=== PATIENT | male | born 1960 | race Caucasian/White ===

== ENCOUNTER 2022-01-16 17:37 | Inpatient (IN) ==
[2022-01-16] MEDS ORDERED: SODIUM CHLORIDE 0.9% 1000ML 1,000 ML IV STA (18:14)
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
[2022-01-16 18:26] LABS: Hematocrit (blood only) 35.9 % (42-52); Hemoglobin 12.1 g/dL (14.0-18.0); Mean Corpuscular Hemoglobin 34.8 pg (25-34); Mean Corpuscular Hgb Conc 33.7 g/dL (32-36); Mean Corpuscular Volume 103.2 fL (80-100); Mean Platelet Volume 9.6 fL (7.4-10.4); Platelet Count 176 K/uL (130-400); RDW Coefficient of Variation 16.3 % (11.5-14.5); RDW Standard Deviation 61.6 fL (36.4-46.3); Red Blood Count 3.48 M/uL (4.7-6.1); White Blood Count 17.43 K/uL (4.8-10.8)
[2022-01-16 18:41] LABS: Basophils # (auto) 0.02 K/uL (0-0.2); Basophils % (auto) 0.1 %; Eosinophils # (auto) 0.02 K/uL (0-0.5); Eosinophils % (auto) 0.1 %; Immature Granulocytes # (auto) 0.07 K/uL (0.00-0.02); Immature Granulocytes % (auto) 0.4 %; Lymphocytes # (auto) 1.05 K/uL (1.2-3.4); Monocytes # (auto) 1.98 K/uL (0.11-0.59); Monocytes % (auto) 11.4 %; Neutrophils # (auto) 14.29 K/uL (1.4-6.5); Ovalocytes 1+; Tear Drop Cells 1+
[2022-01-16 18:56] LABS: Albumin Globulin Ratio 1.3 (0.9-2); Albumin Level 4.1 gm/dl (3.4-5.0); BUN Creatinine Ratio 16.4 (10-20); Bilirubin,Total 0.7 mg/dl (0.2-1.0); Calcium 9.7 mg/dl (8.5-10.1); Est GFR (African American) 128.5 ml/min; Est GFR (Non-African American) 110.9 ml/min; Globulin 3.1 gm/dl (2.5-4.0); Potassium 2.6 mmol/L (3.5-5.1); Total Protein 7.2 gm/dl (6.0-8.3)
[2022-01-16] MEDS ORDERED: GELATIN SPONGE 12-7MM ONE (19:06)
[2022-01-16] MEDS ORDERED: cefTRIAXone SODIUM 2,000 MG/70 ML BAG IV STA (19:10)
[2022-01-16] MEDS ORDERED: POTASSIUM CHLORIDE / WTR 10 MEQ/100 ML PLCT IV ONE (19:12)
[2022-01-16] MEDS ORDERED: POTASSIUM CHLORIDE 20 MEQ/15 ML UDC PO STA (19:12)
[2022-01-16 20:47] LABS: Appearance Urine Clear (Clear); Bacteria Urine Automated Negative (Negative); Bilirubin Urine Negative (Negative); Blood Urine 2+ (Negative); Color Urine Yellow; Glucose Urine UA Negative (Negative); Ketones Urine Trace (Negative); Leukocyte Esterase Urine Negative (Negative); Nitrite Urine Negative (Negative); Protein Urine Negative (Negative); RBC Urine Automated >30 /hpf (0-4); Specific Gravity Urine 1.018 (1.000-1.030); Urobilinogen Urine Negative (Negative)
[2022-01-16] MEDS ORDERED: OPTIRAY 320 100ml IV ONE (21:22)
[2022-01-16] MEDS: SOD PHOSPHATE/SOD BIPHOSPHATE ENEMA 132 ML BTL PR STA ×2 (21:59→22:16)
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
[2022-01-16] MEDS ORDERED: dexAMETHasone**PF** 10 MG/ML VIAL IV ONE (22:50)
[2022-01-16] MEDS ORDERED: MoRPHine SULFATE 2 MG/ML CARP IV STA (23:12)
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
[2022-01-16] MEDS ORDERED: METOPROLOL TARTRATE 1 MG/ML VIAL IV STA (23:22)
[2022-01-16] MEDS ORDERED: LACTATED RINGER'S 1,000 ML IV ONE (23:31)
[2022-01-16] MEDS: METOPROLOL TARTRATE 1 MG/ML VIAL IV ONE ×2 (23:34→23:46)
[2022-01-16 23:50] LABS: Magnesium 1.6 mg/dl (1.7-2.4)
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
[2022-01-17] MEDS ORDERED: bisacodyL 10 MG SUPP PR STA (00:23)
[2022-01-17] MEDS ORDERED: MAGNESIUM SULFATE / D5W 1 GM/100 ML BAG IV ONE (00:24)
[2022-01-17] MEDS ORDERED: METOPROLOL TARTRATE 1 MG/ML VIAL IV STA (01:31)
[2022-01-17] MEDS ORDERED: POLYETHYLENE (MIRALAX) 17 GM PACK PO PRN (01:33)
[2022-01-17] MEDS ORDERED: CEFEPIME 2,000 MG/20 ML VIAL IV STA (01:45)
[2022-01-17] MEDS ORDERED: clonazePAM 0.5 MG TAB PO PRN (01:58)
[2022-01-17] MEDS ORDERED: OLANZapine 10 MG/2.1 ML SDV IM PRN (01:58)
[2022-01-17] MEDS ORDERED: PROMETHAZINE HCL 6.25 MG in SODIUM CHLORIDE 0.9% 50 ML IV PRN (01:58)
[2022-01-17] MEDS ORDERED: oxyCODONE HCL IR 5 MG TAB (IMMEDIATE RELEASE) PO PRN (01:58)
[2022-01-17] MEDS ORDERED: KETOROLAC TROMETHAMINE 15 MG/ML VIAL IV PRN (01:58)
[2022-01-17] MEDS ORDERED: ACETAMINOPHEN 325 MG TAB PO PRN (02:32)
[2022-01-17] MEDS ORDERED: HEPARIN 100 UNIT/ML 5ML FLUSH FLUSH PRN (02:48)
[2022-01-17] MEDS: POTASSIUM CHLORIDE / WTR 10 MEQ/100 ML PLCT IV SCH ×4 (03:13→06:34)
[2022-01-17] MEDS ORDERED: METOPROLOL SUCC 50MG EXT REL TAB PO SCH ×2 (05:15→09:00)
[2022-01-17] MEDS ORDERED: LACTATED RINGER'S 1,000 ML IV ONE (05:16)
[2022-01-17] MEDS: dexAMETHasone 4 MG in SYRINGE 0 ML IV SCH ×2 (05:54→13:13)
[2022-01-17 07:36] LABS: Hematocrit (blood only) 31.4 % (42-52); Hemoglobin 10.5 g/dL (14.0-18.0); Immature Granulocytes # (auto) 0.07 K/uL (0.00-0.02); Immature Granulocytes % (auto) 0.4 %; Lymphocytes # (auto) 0.39 K/uL (1.2-3.4); Lymphocytes % (auto) 2.5 %; Mean Corpuscular Hemoglobin 34.4 pg (25-34); Mean Corpuscular Hgb Conc 33.4 g/dL (32-36); Mean Platelet Volume 9.7 fL (7.4-10.4); Monocytes % (auto) 0.6 %; Neutrophils # (auto) 15.13 K/uL (1.4-6.5); Neutrophils % (auto) 96.5 %; Platelet Count 152 K/uL (130-400); RDW Coefficient of Variation 16.2 % (11.5-14.5); Red Blood Count 3.05 M/uL (4.7-6.1); White Blood Count 15.69 K/uL (4.8-10.8)
--- NOTE | 2022-01-17 07:36 | CT Scan Report ---
CT head/brain wo/w con CLINICAL HISTORY: confusion, head tumor TECHNIQUE: Contiguous axial CT images of the head from the base of the skull to the vertex before and after intravenous administration of IV contrast and submitted for interpretation. Automated dose low ering techniques and/or adjustment according to patient size were utilized for this examination. COMPARISON: Comparison is made to CT head 09/09/2021 FINDINGS: Patient is again noted to be status post right frontoparietal craniectomy. Superficial soft tissue ma ss is significantly enlarged from prior exam measuring up to 2.7 cm in diameter, compared to 1.4 cm i n the prior exam. There is extensive vasogenic edema in the posterior cerebrum, increased from prior exam. Posterior midline cerebral calcifications are seen, unchanged. Calvarial erosions are again seen and there is opacification of right mastoid air cells. IMPRESSION: Interval worsening of vasogenic edema patient with known malignancy. Increase in right te mporal subcutaneous mass compared to prior exam. Redemonstration of craniotomy changes and calcifica tions in the posterior midline which may represent neoplastic changes. ACT 112: Negative or not required by law. Electronically signed by: Edmundo Bolanos M.D. 01/17/2022 7:35 AM
--- NOTE | 2022-01-17 07:36 | XRay Report ---
SINGLE VIEW CHEST CLINICAL HISTORY: Change in mental status. FINDINGS: 2 AP, portable, upright chest radiographs are compared to study dated 01/12/2022. Correlation is made with chest CT dated 09/25/2013. The examination is degraded by portable technique and apical lordotic positioning. A right internal jugular central venous infusion port is unchanged in position. The cardiomediastinal silhouette is unremarkable noting atherosclerotic calcification of the thoraci c aorta. A pleural-based mass lesion in the right upper lobe is again noted with adjacent rib fractur es. No airspace consolidation typical for pneumonia or large pleural effusion is identified. No pneum othorax is seen. The skeletal structures are osteopenic. Surgical clips are noted in the right axill a as well as over the lower face. IMPRESSION: 1. There is no airspace consolidation typical for pneumonia or large pleural effusion. 2. A pleural-based lesion in the right upper lobe with adjacent rib fractures is similar to previous. Correlate with the patient's oncological history. ACT 112: Negative or not required by law. Electronically signed by: Irving Menchaca M.D. 01/17/2022 7:35 AM
[2022-01-17 07:54] LABS: BUN Creatinine Ratio 16.3 (10-20); Calcium 8.6 mg/dl (8.5-10.1); Creatinine Clr Calc Pharmacy 162.2 ml/min; Est GFR (African American) 142.2 ml/min; Est GFR (Non-African American) 122.7 ml/min; Magnesium 1.6 mg/dl (1.7-2.4); Potassium 3.4 mmol/L (3.5-5.1)
--- NOTE | 2022-01-17 07:54 | CT Scan Report ---
CT abd pelvis IV con only CLINICAL HISTORY: hematuria TECHNIQUE: Helical axial images of the abdomen and pelvis were obtained and displayed. Automated dose lowering techniques and/or adjustment according to patient size were utilized for this exam. This e xam was performed with intravenous contrast. CT DOSE: 2750.61 mGy.cm COMPARISON: None available at the time of this dictation. FINDINGS: Lower chest: No acute abnormality Liver: Unremarkable. No focal lesions are seen. Gallbladder and biliary tree: No calcified gallstones. Normal caliber wall. No intra- or extrahepatic biliary ductal dilation. Pancreas: Unremarkable, no focal lesions. Spleen: Unremarkable. Adrenals: Unremarkable. Kidneys and ureters: Subcentimeter hypodensities are too small to characterize. Bladder: Tavarez catheter is seen. Prominence of the bladder wall is noted. Reproductive organs: Unremarkable. Bowel: Rectal impaction is seen. There is a small hiatal hernia. Lymph nodes Retroperitoneal: Unremarkable. Mesenteric: Unremarkable. Pelvic: Unremarkable. Peritoneum: Normal. Vessels: An aortobiiliac stent is noted. Spanning a 2.5 cm right common iliac artery aneurysm. There is stenosis in the proximal common femoral artery and occlusion and dilation of the superficial femor al artery. Abdominal wall: Unremarkable. Bones: Degenerative changes in the visualized spine. IMPRESSION: 1. No acute abnormality and in particular no evidence of urothelial lesion. 2. Fecal impaction. 3. Status post aortobiiliac stent with stenosis of the right proximal common femoral artery and occl usion dilation of the superficial femoral artery on the right. ACT 112: Negative or not required by law. Electronically signed by: Edmundo Bolanos M.D. 01/17/2022 7:52 AM
[2022-01-17] MEDS ORDERED: CEFEPIME 2,000 MG in SYRINGE 0 ML IV SCH (08:00)
[2022-01-17] MEDS ORDERED: 25 mcg patch: fentaNYL PATCH REMOVE & WASTE SCH (08:59)
[2022-01-17] MEDS ORDERED: fentaNYL 12 MCG/HR TDSY TD SCH (09:00)
[2022-01-17] MEDS ORDERED: DULoxetine HCL 20 MG CAP PO SCH (09:00)
[2022-01-17] MEDS ORDERED: ASPIRIN 81 MG ECTAB PO SCH (09:00)
[2022-01-17] MEDS ORDERED: ATORVASTATIN 20 MG TAB PO SCH (09:00)
[2022-01-17] MEDS: [UNRECOGNIZED DRUG - REMARK] SCH (09:00)
[2022-01-17] MEDS ORDERED: DOCUSATE SODIUM/SENNA 50/8.6MG TAB PO SCH (09:00)
[2022-01-17] MEDS ORDERED: fentaNYL 25 MCG/HR TDSY TD SCH (09:00)
[2022-01-17] MEDS ORDERED: PANTOprazole 40 MG in SYRINGE 0 ML IV SCH (11:00)
[2022-01-17 13:32] LABS: Hematocrit (blood only) 29.8 % (42-52); Hemoglobin 10.1 g/dL (14.0-18.0); Mean Corpuscular Hemoglobin 34.7 pg (25-34); Mean Corpuscular Hgb Conc 33.9 g/dL (32-36); Mean Corpuscular Volume 102.4 fL (80-100); Mean Platelet Volume 9.9 fL (7.4-10.4); Platelet Count 146 K/uL (130-400); RDW Standard Deviation 60.8 fL (36.4-46.3); Red Blood Count 2.91 M/uL (4.7-6.1); White Blood Count 13.71 K/uL (4.8-10.8)
[2022-01-17 13:41] LABS: BUN Creatinine Ratio 18.6 (10-20); Calcium 8.7 mg/dl (8.5-10.1); Creatinine Clr Calc Pharmacy 162.2 ml/min; Est GFR (African American) 142.2 ml/min; Est GFR (Non-African American) 122.7 ml/min; Potassium 2.9 mmol/L (3.5-5.1)
[2022-01-17] MEDS ORDERED: ONDANSETRON 4 MG OD TAB SL PRN (15:03)
[2022-01-17] MEDS ORDERED: MoRPHine SULFATE 2 MG/ML CARP IV PRN (15:03)
--- NOTE | 2022-01-17 15:05 | Hospitalist Progress Note ---
Date of Service January 17, 2022 Assessment & Plan Admission and Anticipated Discharge Date Admission Date: January 17, 2022 Subjective Patient admitted today for hematuria but noted to have progressive confusion for past 1 week. Patient was seen and examined. Chart reviewed. Later I was notified by nursing staff that he is having episodes of dark emesis and one episode of 30 sec unresponsiveness. I called Mrs Shetty and we discussed her 's poor prognosis and poor clinical status currently. She is considering comfort measures only but would like to discuss with her children. I later received notification from Dr Alex that after discussing with Mrs Shetty, family has requested patient be transitioned to comfort measures only. Appreciate Palliative care input. Will transition to comfort measures, will notify CM, and move patient to med/surg. Full note by oncoming provider tomorrow. Results & Data Results & Data ([facility]) Vital Signs (Past 12 Hours) Vital Signs Temp Pulse Pulse Pulse Resp BP Pulse Ox 01/17/22 11:08 37 C 113 H 16 129/84 98 01/17/22 08:00 106 H 01/17/22 07:33 36.5 C 108 H 18 119/77 97 01/17/22 05:52 121 H 135/92
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
[2022-01-17] MEDS ORDERED: LORazepam 2 MG/1 ML VIAL ONE (17:47)
[2022-01-17] MEDS: LORazepam 2 MG/1 ML VIAL IV SCH ×2 (17:55→21:24)
[2022-01-17] MEDS: CHECK FENTANYL SCH (17:56)
[2022-01-17] MEDS ORDERED: HEPARIN 100 UNIT/ML 5ML FLUSH ONE (20:03)
[2022-01-17] MEDS: HEPARIN 100 UNIT/ML 5ML FLUSH FLUSH PRN (20:05)
[2022-01-18] MEDS: LORazepam 2 MG/1 ML VIAL IV SCH ×3 (00:15→08:30)
[2022-01-18] MEDS: CHECK FENTANYL SCH ×2 (00:18→08:01)
[2022-01-18] MEDS: MoRPHine SULFATE 2 MG/ML CARP IV PRN ×11 (05:45→23:07)
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
[2022-01-18] MEDS: HEPARIN 100 UNIT/ML 5ML FLUSH FLUSH PRN (12:26)
[2022-01-18] MEDS ORDERED: LORazepam 2 MG/1 ML VIAL IV SCH (12:30)
[2022-01-18] MEDS: ONDANSETRON INJ 2 MG/ML 2 ML VIAL IV PRN (13:19)
--- NOTE | 2022-01-18 14:37 | Palliative Care Progress Note ---
Date of Service January 18, 2022 Assessment & Plan (1) Pain: Plan: Discussed with his , Aileen. Difficult to titrate pain medications rapidly with fentanyl patch. Will discontinue and start morphine infusion. Start low dose initially with no titration while fentanyl clears. Morphine doses available prn. Discussed with RN and pharmacy. (2) Palliative care encounter: Plan: Talked with Mrs. Shetty at bedside. She tells me that she is having some second thoughts about shifting the focus of his care. We reviewed the head CT and talked about her observations that he had been declining at home, despite treatment. She feels more comfortable with that decision. She has a lot of family support. They have been looking at pictures together and sharing memories. She tells me that he told her last night to make sure he gets to his parents, who are . Support provided. Palliative Care will follow. (3) At risk for seizures: (4) Squamous cell skin cancer: Admission and Anticipated Discharge Date Admission Date: January 17, 2022 Subjective Has been awake and talking with family. They are taking turns at bedside. He has been complaining of pain in his head with morphine x 4 in last 24 hours. He does not feel that fentanyl is helping. Review of Systems Review of Systems: [place] Symptom Assessment Scale Currently asleep, difficult to arouse Pain by observation 0/3 Dyspnea by observation 0/3 Palliative Performance Score 30% Physical Exam Constitutional: somnolent, no apparent distress Respiratory: normal respiratory effort; no labored breathing Cardiovascular: irregular Gastrointestinal (Abdomen): nontender Musculoskeletal: Extremities: + muscle atrophy Skin: warm and dry PG Care Time/CCT Total # of Minutes Spent Total Time Spent: 45 Total Time Spent with Patient: Total time spent is greater than 50% in coordination of care (as documented) at patient's floor/unit and/or counseling patient: symptom management, family education and support, coordination of care Coding Level of Care Code 74752 Subseq Hosp Care Lvl 3 Diagnoses Pain R52 Palliative care encounter Z51.5 At risk for seizures Z91.89 Squamous cell skin cancer C44.92
[2022-01-18] MEDS ORDERED: STAT IV Infusion **Titration per Protocol STA (14:43)
[2022-01-18] MEDS: LORazepam 0.5 MG TAB SL SCH ×3 (15:58→23:07)
[2022-01-18] MEDS: MoRPHine SULF/NSS 250 MG/250 ML BTL IV SCH (17:27)
[2022-01-18] MEDS: [UNRECOGNIZED DRUG - REMARK] SCH (17:29)
[2022-01-19] MEDS: MoRPHine SULFATE 2 MG/ML CARP IV PRN ×8 (00:14→23:20)
[2022-01-19] MEDS: LORazepam 2 MG/1 ML VIAL IV PRN ×2 (01:01→05:01)
[2022-01-19] MEDS: LORazepam 0.5 MG TAB SL SCH ×3 (03:39→12:20)
[2022-01-19] MEDS ORDERED: Nursing to Pharmacy Communication SCH (06:00)
[2022-01-19] MEDS: ONDANSETRON INJ 2 MG/ML 2 ML VIAL IV PRN ×2 (09:44→16:06)
[2022-01-19] MEDS ORDERED: OLANZapine ZYDIS 5 MG ORALLY DIS. TAB PO PRN (12:37)
--- NOTE | 2022-01-19 12:45 | Palliative Care Progress Note ---
Date of Service January 19, 2022 Assessment & Plan (1) Pain: Plan: Nearly 24 hours since fentanyl patch removed. He has had 20mg IV morphine in last 24 hours in prn dosing in addition to infusion. Will increase basal rate to 3mg/hr. Continue prn dosing rather than titration as fentanyl clears. (2) At risk for seizures: Plan: Continue routine lorazepam. (3) Agitation: Plan: Related to cerebral edema vs terminal delirium. This is distressing to He and his family. Increase lorazepam to 1mg every four hours routine dosing. Add prn zyprexa ODT for delirium. (4) Palliative care encounter: Plan: Mr. Shetty tells me that she talked with family and they are all in agreement that comfort focused approach is the best way to help He at this time. Family is visiting and have had some lucid moments with He. 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 Calling out to get going, to go somewhere. Denies pain when asked. Facial grimace and moan with repositioning. Review of Systems Review of Systems: Unobtainable due to cognitive status PPS 30% Physical Exam Constitutional: + ill appearing and + altered mental status ENMT: Mouth: + dry oral mucous membranes Respiratory: normal respiratory effort; no labored breathing Musculoskeletal: Extremities: + muscle atrophy Skin: warm and dry Neurologic: + confused PG Care Time/CCT Total # of Minutes Spent Total Time Spent: 38 Total Time Spent with Patient: Total time spent is greater than 50% in coordination of care (as documented) at patient's floor/unit and/or counseling patient: symptom management, family education and support Coding Level of Care Code 90793 Subseq Hosp Care Lvl 3 Diagnoses Pain R52 At risk for seizures Z91.89 Agitation R45.1 Palliative care encounter Z51.5 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
[2022-01-19] MEDS ORDERED: LORazepam 0.5 MG TAB SL STA (13:06)
--- NOTE | 2022-01-19 15:52 | Hospitalist Progress Note ---
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 Ferguson. No surgical intervention recommended. Palliative care consultation recommended.) CS, Cefepime Held initially as needed narcotics/neuropsychotropic meds for sedation confusion Palliative care consulted Re: Discuss goals of care with patient/- patient was made comfort care after discussion with palliative medicine , patient more confused and agitated, continue morphine, Ativan, Zyprexa for delirium prn Chronic conditions hx coronary disease status post stenting, PVD status post surgery, hypertension, BP normal hx HCV as per records chronic anemia, hemoglobin at baseline past tobacco abuse. DVT prophylaxis SCDs Re: Brain mets CODE STATUS : DNR/DNI -comfort care Patient's , Ms. Aileen Shetty - [phone]. Admission and Anticipated Discharge Date Admission Date: January 17, 2022 Subjective Patient seen in follow-up of encephalopathy, history of squamous cell carcinoma, with metastases, now comfort care Patient more confused and agitated today Palliative medicine consulted and following, appreciate their input Currently denies any pain, nausea or any significant discomfort Patient's and granddaughter at the bedside Review of Systems Review of Systems: All systems reviewed & are unremarkable except as noted in Subjective Physical Exam Physical Exam: Constitutional:G + Chronically ill appearing; no acu te distress ENMT: Alopecia, healed s urgical scars over scalp, oral mucou s membranes not dr y Respiratory: normal respiratory effort; no labore d breathing Cardiovascular:G Rate/Rhythm: regul ar rate and regula r rhythm Gastrointestinal ( Abdomen): soft, nontender Skin: pale Neurologic: + Laying in bed, somewhat confused today Results & Data Results & Data ([facility]) Medications Administered Current Inpatient Medications Heparin Sodium (Porcine) (Heparin 100 Unit/Ml 5ml Flush) 5 ml FLUSH PRN PRN PRN Reason: Flush Stop: 02/16/22 19:49 Last Admin: 01/18/22 12:26 Dose: 5 ml Documented by: Promethazine HCl 6.25 mg/ (Sodium Chloride) 50.25 mls @ 201 mls/hr IV Q6H PRN PRN Reason: Nausea And Vomiting Stop: 02/16/22 01:57 Last Infusion: 01/17/22 13:35 Dose: Infused Documented by: Morphine Sulfate (Morphine Sulf/Nss) 250 mg in 250 mls @ 3 mls/hr IV .[id number] [facility]; Protocol Stop: 02/01/22 14:44 Last Titration: 01/19/22 13:02 Dose: 3 mg/hr, 3 mls/hr Documented by: Lorazepam (Lorazepam 2 Mg/1 Ml Vial) 1 mg IV Q4H PRN; Protocol PRN Reason: Agitation Stop: 02/18/22 12:44 Lorazepam (Lorazepam 1 Mg Tab) 1 mg SL Q4 LES[facility] Stop: 02/18/22 15:59 Morphine Sulfate (Morphine Sulfate 2 Mg/Ml Carp) 2 mg IV Q1H PRN PRN Reason: Pain or Respiratory Distress Stop: 01/31/22 15:02 Last Admin: 01/19/22 14:48 Dose: 2 mg Documented by: Olanzapine (Olanzapine Zydis 5 Mg Orally Dis. Tab) 5 mg PO Q8H PRN PRN Reason: Agitation Stop: 02/18/22 12:44 Ondansetron HCl (Ondansetron Inj 2 Mg/Ml 2 Ml Vial) 4 mg IV Q4H PRN PRN Reason: Nausea &/or Vomiting Stop: 02/16/22 15:02 Last Admin: 01/19/22 09:44 Dose: 4 mg Documented by: Ondansetron HCl (Ondansetron 4 Mg Od Tab) 4 mg SL Q4H PRN PRN Reason: Nausea &/or Vomiting Stop: 02/16/22 15:02
[2022-01-19] MEDS: LORazepam 1 MG TAB SL SCH ×2 (16:01→21:30)
[2022-01-20] MEDS: LORazepam 1 MG TAB SL SCH ×6 (01:16→19:14)
[2022-01-20] MEDS: MoRPHine SULFATE 2 MG/ML CARP IV PRN ×6 (03:16→21:47)
--- NOTE | 2022-01-20 12:49 | Palliative Care Progress Note ---
Date of Service January 20, 2022 Assessment & Plan (1) Pain: Plan: Fentanyl mostly cleared at this point. He used 10mg IV morphine in bolus dosing last 24 hours. Will increase infusion to 3.5 mg/hr. Continue bolus dosing as needed. (2) Agitation: Plan: Improved with zyprexa and increased dose of lorazepam. (3) At risk for seizures: Plan: On routine lorazepam for seizure prophylaxis. (4) Palliative care encounter: Plan: Talked with Mrs. Shetty about what to expect with changes in respiration, decreased responsiveness. He is likely to within the next few days. She has told him that its ok to go when he is ready. He talks frequently about seeing relatives. Family has been very supportive and take turns at bedside. Admission and Anticipated Discharge Date Admission Date: January 17, 2022 Subjective More lethargic today. Does answer questions and calls out to his family at times. Complains of pain in his head when asked but quickly goes back to sleep. No facial grimace. No muscle tension. Having periods of apnea per his . Review of Systems Review of Systems: ESAS Pain 1/3 Dyspnea 0/3 Nausea 0/3 Fatigue 3/3 Drowsiness 2/3 PPS 30% Physical Exam Constitutional: + lethargic; no acute distress ENMT: Mouth: + dry oral mucous membranes Respiratory: normal respiratory effort; no labored breathing no audible secretions Cardiovascular: Extremities: no edema vascular skin changes, mottling noted on left knee Musculoskeletal: muscle atrophy, right AKA Results & Data ([facility]) Vital Signs (Past 12 Hours) Vital Signs Temp Pulse Resp BP Pulse Ox 01/20/22 07:16 98.4 F 131 H 16 121/81 96 PG Care Time/CCT Total # of Minutes Spent Total Time Spent with Patient: Total time spent is greater than 50% in coordination of care (as documented) at patient's floor/unit and/or counseling patient: Coding Level of Care Code 95282 Subseq Hosp Care Lvl 2 Diagnoses Pain R52 Agitation R45.1 At risk for seizures Z91.89 Palliative care encounter Z51.5
--- NOTE | 2022-01-20 14:28 | Hospitalist Progress Note ---
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 Ferguson. No surgical intervention recommended. Palliative care consultation recommended.) CS, Cefepime Held initially as needed narcotics/neuropsychotropic meds for sedation confusion Palliative care consulted Re: Discuss goals of care with patient/- patient was made comfort care after discussion with palliative medicine continue morphine, Ativan, Zyprexa for delirium prn Appreciate palliative medicine input Chronic conditions hx coronary disease status post stenting, PVD status post surgery, hypertension, BP normal hx HCV as per records chronic anemia, hemoglobin at baseline past tobacco abuse. DVT prophylaxis SCDs Re: Brain mets CODE STATUS : DNR/DNI -comfort care Patient's , Ms. Aileen Shetty - [phone]. Admission and Anticipated Discharge Date Admission Date: January 17, 2022 Subjective Patient seen in follow-up of encephalopathy, history of squamous cell carcinoma, with metastases, now comfort care Patient more lethargic today Palliative medicine consulted and following, appreciate their input Patient's , daughter and granddaughter at the bedside Review of Systems Review of Systems: All systems reviewed & are unremarkable except as noted in Subjective Physical Exam Physical Exam: Constitutional:G + Chronically ill appearing; no acu te distress ENMT: Alopecia, healed s urgical scars over scalp, oral mucou s membranes not dr y Respiratory: normal respiratory effort; no labore d breathing Cardiovascular:G Rate/Rhythm: regul ar rate and regula r rhythm Gastrointestinal ( Abdomen): soft, nontender Skin: pale Neurologic: + Laying in bed, more lethargic tod ay Results & Data Results & Data ([facility]) Vital Signs (Past 12 Hours) Vital Signs Temp Pulse Resp BP Pulse Ox 01/20/22 07:16 36.9 C 131 H 16 121/81 96 Medications Administered Current Inpatient Medications Heparin Sodium (Porcine) (Heparin 100 Unit/Ml 5ml Flush) 5 ml FLUSH PRN PRN PRN Reason: Flush Stop: 02/16/22 19:49 Last Admin: 01/18/22 12:26 Dose: 5 ml Documented by: Promethazine HCl 6.25 mg/ (Sodium Chloride) 50.25 mls @ 201 mls/hr IV Q6H PRN PRN Reason: Nausea And Vomiting Stop: 02/16/22 01:57 Last Infusion: 01/17/22 13:35 Dose: Infused Documented by: Morphine Sulfate (Morphine Sulf/Nss) 250 mg in 250 mls @ 3.5 mls/hr IV .[id number] [facility]; Protocol Stop: 02/01/22 14:44 Last Titration: 01/20/22 11:40 Dose: 3.5 mg/hr, 3.5 mls/hr Documented by: Lorazepam (Lorazepam 2 Mg/1 Ml Vial) 1 mg IV Q4H PRN; Protocol PRN Reason: Agitation Stop: 02/18/22 12:44 Lorazepam (Lorazepam 1 Mg Tab) 1 mg SL Q4 LESLY Stop: 02/18/22 15:59 Last Admin: 01/20/22 12:07 Dose: 1 mg Documented by: Morphine Sulfate (Morphine Sulfate 2 Mg/Ml Carp) 2 mg IV Q1H PRN PRN Reason: Pain or Respiratory Distress Stop: 01/31/22 15:02 Last Admin: 01/20/22 13:26 Dose: 2 mg Documented by: Olanzapine (Olanzapine Zydis 5 Mg Orally Dis. Tab) 5 mg PO Q8H PRN PRN Reason: Agitation Stop: 02/18/22 12:44 Ondansetron HCl (Ondansetron Inj 2 Mg/Ml 2 Ml Vial) 4 mg IV Q4H PRN PRN Reason: Nausea &/or Vomiting Stop: 02/16/22 15:02 Last Admin: 01/19/22 16:06 Dose: 4 mg Documented by: Ondansetron HCl (Ondansetron 4 Mg Od Tab) 4 mg SL Q4H PRN PRN Reason: Nausea &/or Vomiting Stop: 02/16/22 15:02
[2022-01-21] MEDS: LORazepam 1 MG TAB SL SCH ×6 (01:58→20:32)
[2022-01-21] MEDS: MoRPHine SULFATE 2 MG/ML CARP IV PRN ×6 (03:38→23:17)
--- NOTE | 2022-01-21 08:05 | Hospitalist Progress Note ---
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 Ferguson. No surgical intervention recommended. Palliative care consultation recommended.) CS, Cefepime Held initially as needed narcotics/neuropsychotropic meds for sedation confusion Palliative care consulted Re: Discuss goals of care with patient/- patient was made comfort care after discussion with palliative medicine continue IV morphine, Ativan, Zyprexa for delirium prn Appreciate palliative medicine input Chronic conditions hx coronary disease status post stenting, PVD status post surgery, hypertension, BP normal hx HCV as per records chronic anemia, hemoglobin at baseline past tobacco abuse. DVT prophylaxis SCDs Re: Brain mets CODE STATUS : DNR/DNI -comfort care Patient's , Ms. Aileen Shetty - [phone]. Admission and Anticipated Discharge Date Admission Date: January 17, 2022 Subjective Patient seen in follow-up of encephalopathy, history of squamous cell carcinoma, with metastases, now comfort care Patient more lethargic today Palliative medicine consulted and following, appreciate their input Patient's and sister at the bedside Review of Systems Review of Systems: Unobtainable due to cognitive status Physical Exam Physical Exam: Constitutional:G + Chronically ill appearing; no acu te distress ENMT: Alopecia, healed s urgical scars over scalp, oral mucou s membranes not dr y Respiratory: normal respiratory effort; no labore d breathing Cardiovascular:G Rate/Rhythm: regul ar rate and regula r rhythm Gastrointestinal ( Abdomen): soft, nontender Skin: pale Neurologic: + Laying in bed, more lethargic tod ay Results & Data Results & Data ([facility]) Medications Administered Current Inpatient Medications Heparin Sodium (Porcine) (Heparin 100 Unit/Ml 5ml Flush) 5 ml FLUSH PRN PRN PRN Reason: Flush Stop: 02/16/22 19:49 Last Admin: 01/18/22 12:26 Dose: 5 ml Documented by: Promethazine HCl 6.25 mg/ (Sodium Chloride) 50.25 mls @ 201 mls/hr IV Q6H PRN PRN Reason: Nausea And Vomiting Stop: 02/16/22 01:57 Last Infusion: 01/17/22 13:35 Dose: Infused Documented by: Morphine Sulfate (Morphine Sulf/Nss) 250 mg in 250 mls @ 3.5 mls/hr IV .[id number] [facility]; Protocol Stop: 02/01/22 14:44 Last Titration: 01/21/22 07:06 Dose: 3.5 mg/hr, 3.5 mls/hr Documented by: Lorazepam (Lorazepam 2 Mg/1 Ml Vial) 1 mg IV Q4H PRN; Protocol PRN Reason: Agitation Stop: 02/18/22 12:44 Lorazepam (Lorazepam 1 Mg Tab) 1 mg SL Q4 LESLY Stop: 02/18/22 15:59 Last Admin: 01/21/22 03:28 Dose: 1 mg Documented by: Morphine Sulfate (Morphine Sulfate 2 Mg/Ml Carp) 2 mg IV Q1H PRN PRN Reason: Pain or Respiratory Distress Stop: 01/31/22 15:02 Last Admin: 01/21/22 03:38 Dose: 2 mg Documented by: Olanzapine (Olanzapine Zydis 5 Mg Orally Dis. Tab) 5 mg PO Q8H PRN PRN Reason: Agitation Stop: 02/18/22 12:44 Last Admin: 01/20/22 21:51 Dose: 5 mg Documented by: Ondansetron HCl (Ondansetron Inj 2 Mg/Ml 2 Ml Vial) 4 mg IV Q4H PRN PRN Reason: Nausea &/or Vomiting Stop: 02/16/22 15:02 Last Admin: 01/19/22 16:06 Dose: 4 mg Documented by: Ondansetron HCl (Ondansetron 4 Mg Od Tab) 4 mg SL Q4H PRN PRN Reason: Nausea &/or Vomiting Stop: 02/16/22 15:02
[2022-01-22] MEDS: LORazepam 1 MG TAB SL SCH ×6 (00:07→20:27)
[2022-01-22] MEDS: MoRPHine SULFATE 2 MG/ML CARP IV PRN ×7 (01:36→23:44)
[2022-01-22] MEDS: MoRPHine SULF/NSS 250 MG/250 ML BTL IV SCH (09:56)
--- NOTE | 2022-01-22 11:47 | Hospitalist Progress Note ---
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 Ferguson. No surgical intervention recommended. Palliative care consultation recommended.) CS, Cefepime Held initially as needed narcotics/neuropsychotropic meds for sedation confusion Palliative care consulted Re: Discuss goals of care with patient/- patient was made comfort care after discussion with palliative medicine continue IV morphine, Ativan, Zyprexa for delirium prn Appreciate palliative medicine input Chronic conditions hx coronary disease status post stenting, PVD status post surgery, hypertension, BP normal hx HCV as per records chronic anemia, hemoglobin at baseline past tobacco abuse. DVT prophylaxis SCDs Re: Brain mets CODE STATUS : DNR/DNI -comfort care Patient's , Ms. Aileen Shetty - [phone]. Admission and Anticipated Discharge Date Admission Date: January 17, 2022 Subjective Patient seen in follow-up of encephalopathy, history of squamous cell carcinoma, with metastases, now comfort care Patient more lethargic today Palliative medicine consulted and following, appreciate their input Patient's at the bedside Review of Systems Review of Systems: All systems reviewed & are unremarkable except as noted in Subjective Physical Exam Physical Exam: Constitutional:G + Chronically ill appearing; no acu te distress ENMT: Alopecia, healed s urgical scars over scalp, oral mucou s membranes not dr y Respiratory: normal respiratory effort; no labore d breathing Cardiovascular:G Rate/Rhythm: regul ar rate and regula r rhythm Gastrointestinal ( Abdomen): soft, nontender Skin: pale Neurologic: + Laying in bed, more lethargic tod ay Results & Data Results & Data ([facility]) Medications Administered Current Inpatient Medications Heparin Sodium (Porcine) (Heparin 100 Unit/Ml 5ml Flush) 5 ml FLUSH PRN PRN PRN Reason: Flush Stop: 02/16/22 19:49 Last Admin: 01/18/22 12:26 Dose: 5 ml Documented by: Promethazine HCl 6.25 mg/ (Sodium Chloride) 50.25 mls @ 201 mls/hr IV Q6H PRN PRN Reason: Nausea And Vomiting Stop: 02/16/22 01:57 Last Infusion: 01/17/22 13:35 Dose: Infused Documented by: Morphine Sulfate (Morphine Sulf/Nss) 250 mg in 250 mls @ 3.5 mls/hr IV .[id number] [facility]; Protocol Stop: 02/01/22 14:44 Last Admin: 01/22/22 09:56 Dose: 3.5 mg/hr, 3.5 mls/hr Documented by: Lorazepam (Lorazepam 2 Mg/1 Ml Vial) 1 mg IV Q4H PRN; Protocol PRN Reason: Agitation Stop: 02/18/22 12:44 Lorazepam (Lorazepam 1 Mg Tab) 1 mg SL Q4 LESLY Stop: 02/18/22 15:59 Last Admin: 01/22/22 10:04 Dose: Not Given Documented by: Morphine Sulfate (Morphine Sulfate 2 Mg/Ml Carp) 2 mg IV Q1H PRN PRN Reason: Pain or Respiratory Distress Stop: 01/31/22 15:02 Last Admin: 01/22/22 11:25 Dose: 2 mg Documented by: Olanzapine (Olanzapine Zydis 5 Mg Orally Dis. Tab) 5 mg PO Q8H PRN PRN Reason: Agitation Stop: 02/18/22 12:44 Last Admin: 01/20/22 21:51 Dose: 5 mg Documented by: Ondansetron HCl (Ondansetron Inj 2 Mg/Ml 2 Ml Vial) 4 mg IV Q4H PRN PRN Reason: Nausea &/or Vomiting Stop: 02/16/22 15:02 Last Admin: 01/19/22 16:06 Dose: 4 mg Documented by: Ondansetron HCl (Ondansetron 4 Mg Od Tab) 4 mg SL Q4H PRN PRN Reason: Nausea &/or Vomiting Stop: 02/16/22 15:02
[2022-01-22] MEDS: LORazepam 2 MG/1 ML VIAL IV PRN ×3 (14:27→22:49)
[2022-01-23] MEDS: LORazepam 1 MG TAB SL SCH ×7 (00:13→23:52)
[2022-01-23] MEDS: GLYCOPYRROLATE 0.2 MG/ML VIAL IV PRN ×3 (00:25→23:56)
[2022-01-23] MEDS: LORazepam 2 MG/1 ML VIAL IV PRN ×2 (04:24→07:58)
[2022-01-23] MEDS: MoRPHine SULFATE 2 MG/ML CARP IV PRN (06:04)
[2022-01-23] MEDS: OLANZapine ZYDIS 5 MG ORALLY DIS. TAB PO PRN ×2 (12:47→19:49)
--- NOTE | 2022-01-23 13:25 | Palliative Care Progress Note ---
Date of Service January 23, 2022 Assessment & Plan (1) Pain: Plan: Mrs. Shetty concerned that he is still having pain. We talked about physical versus emotional pain. She agrees that he's having both but feels that he still needs frequent dosing of morphine for physical pain. Will increase basal rate. (2) Agitation: Plan: Multifactorial - likely terminal delirium with metastatic disease and increased ICP. Continue prn zyprexa. Discussed with RN (3) At risk for seizures: Plan: He had been getting IV lorazepam over the weekend with dry mouth and difficulty dissolving SL tablet. Given significant shortage of parenteral lorazepam, would recommend slurry of tablet with .5cc water administered buccally. (4) Palliative care encounter: Plan: Talked with Mrs. Shetty at bedside. He is approaching his dying time within the next day or two. Family has been very supportive and have told him that its ok to go when he is ready. (5) Squamous cell carcinoma of skin of scalp: Admission and Anticipated Discharge Date Admission Date: January 17, 2022 Subjective Moans at times. Less interactive with family. They have noticed apnea at times. He has had 14 mg IV morphine in last 24 hours. Currently does not respond to voice or touch. Review of Systems Review of Systems: Unobtainable due to reduced consciousness ESAS Pain by observation 1/3 with muscle tension, furrowed brow Dyspnea by observation 0/3 PPS 20% Physical Exam Constitutional: no acute distress ENMT: Mouth: + dry oral mucous membranes Respiratory: normal respiratory effort; no labored breathing and does not use accessory muscles no audible tracheal secretions Cardiovascular: Rate/Rhythm: regular rate and regular rhythm Musculoskeletal: Extremities: + muscle atrophy Genitourinary: decreased UOP from 1800cc on Sunday to 600cc yesterday Results & Data ([facility]) Vital Signs (Past 12 Hours) Vital Signs Pulse Pulse Ox 01/23/22 08:02 128 H 93 PG Care Time/CCT Total # of Minutes Spent Total Time Spent: 40 Total Time Spent with Patient: Total time spent is greater than 50% in coordination of care (as documented) at patient's floor/unit and/or counseling patient: symptom management, family education and support Coding Level of Care Code 47246 Subseq Hosp Care Lvl 3 Diagnoses Pain R52 Agitation R45.1 At risk for seizures Z91.89 Palliative care encounter Z51.5 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
[2022-01-24] MEDS: LORazepam 1 MG TAB SL SCH ×3 (03:57→12:52)
--- NOTE | 2022-01-24 11:32 | Palliative Care Progress Note ---
Date of Service January 24, 2022 Assessment & Plan (1) Pain: Plan: Controlled on morphine infusion. Continue same basal rate of 4.5mg/hr. PRN dosing available. (2) Agitation: Plan: Continue prn zyprexa which has been effective. (3) At risk for seizures: Plan: Continue routine lorazepam. He is tolerating SL dosing. (4) Palliative care encounter: Plan: He is likely to within hours to a day or two. I talked with his and brother about what to expect. Strong family support. Admission and Anticipated Discharge Date Admission Date: January 17, 2022 Subjective Had good night last night per his . No prn morphine since yesterday with current basal rate. Did have prn zyprexa for agitation. Tolerating SL ativan. Review of Systems Review of Systems: Unobtainable due to reduced consciousness ESAS Pain by observation 0/3 Dyspnea by observation 0/3 PPS 10% Physical Exam Constitutional: + ill appearing; no acute distress ENMT: Mouth: + dry oral mucous membranes Respiratory: apnea, mild tracheal secretions. Cardiovascular: Rate/Rhythm: + tachycardic Musculoskeletal: right AKA Neurologic: + obtunded Genitourinary: decreased UOP, 175 cc yesterday total output Results & Data ([facility]) Vital Signs (Past 12 Hours) Vital Signs Temp Pulse Pulse Ox 01/24/22 07:54 102.7 F H 140 H 85 L PG Care Time/CCT Total # of Minutes Spent Total Time Spent with Patient: Total time spent is greater than 50% in coordination of care (as documented) at patient's floor/unit and/or counseling patient: Coding Level of Care Code 27752 Subseq Hosp Care Lvl 2 Diagnoses Pain R52 Agitation R45.1 At risk for seizures Z91.89 Palliative care encounter Z51.5
--- NOTE | 2022-01-24 13:32 | Hospitalist Progress Note ---
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 Ferguson. No surgical intervention recommended. Palliative care consultation recommended.) CS, Cefepime Held initially as needed narcotics/neuropsychotropic meds for sedation confusion Palliative care consulted Re: Discuss goals of care with patient/- patient was made comfort care after discussion with palliative medicine continue IV morphine, Ativan, Zyprexa for delirium prn Appreciate palliative medicine input Patient has some episodes of apnea, per family Strong family support, present at the bedside Chronic conditions hx coronary disease status post stenting, PVD status post surgery, hypertension, BP normal hx HCV as per records chronic anemia, hemoglobin at baseline past tobacco abuse. DVT prophylaxis SCDs Re: Brain mets CODE STATUS : DNR/DNI -comfort care Patient's , Ms. Aileen Shetty - [phone]. Admission and Anticipated Discharge Date Admission Date: January 17, 2022 Subjective Patient seen in follow-up of encephalopathy, history of squamous cell carcinoma, with metastases, now comfort care Patient more lethargic, not responding to voice or touch Patient's , patient's daughter and sister present at the bedside -strong family support Family reports episodes of apnea Palliative medicine consulted and following, appreciate their input Review of Systems Review of Systems: Unobtainable due to cognitive status Physical Exam Physical Exam: Constitutional:G + Chronically ill appearing; no acu te distress ENMT: Alopecia, healed s urgical scars over scalp, oral mucou s membranes not dr y Respiratory: normal respiratory effort; no labore d breathing Cardiovascular:G Rate/Rhythm: regul ar rate and regula r rhythm Gastrointestinal ( Abdomen): soft, nontender Skin: pale Neurologic: + Laying in bed, more lethargic not responding to voi ce or touch Results & Data Results & Data ([facility]) Vital Signs (Past 12 Hours) Vital Signs Temp Pulse Pulse Ox 01/24/22 07:54 39.3 C H 140 H 85 L Medications Administered Current Inpatient Medications Glycopyrrolate (Glycopyrrolate 0.2 Mg/Ml Vial) 0.2 mg IV Q4H PRN PRN Reason: secretions Stop: 02/21/22 23:57 Last Admin: 01/23/22 23:56 Dose: 0.2 mg Documented by: Heparin Sodium (Porcine) (Heparin 100 Unit/Ml 5ml Flush) 5 ml FLUSH PRN PRN PRN Reason: Flush Stop: 02/16/22 19:49 Last Admin: 01/18/22 12:26 Dose: 5 ml Documented by: Promethazine HCl 6.25 mg/ (Sodium Chloride) 50.25 mls @ 201 mls/hr IV Q6H PRN PRN Reason: Nausea And Vomiting Stop: 02/16/22 01:57 Last Infusion: 01/17/22 13:35 Dose: Infused Documented by: Morphine Sulfate (Morphine Sulf/Nss) 250 mg in 250 mls @ 4.5 mls/hr IV .[id number] [facility]; Protocol Stop: 02/01/22 14:44 Last Titration: 01/23/22 19:02 Dose: 4.5 mg/hr, 4.5 mls/hr Documented by: Lorazepam (Lorazepam 1 Mg Tab) 1 mg SL Q4 LESLY Stop: 02/18/22 15:59 Last Admin: 01/24/22 12:52 Dose: 1 mg Documented by: Morphine Sulfate (Morphine Sulfate 2 Mg/Ml Carp) 2 mg IV Q1H PRN PRN Reason: Pain or Respiratory Distress Stop: 01/31/22 15:02 Last Admin: 01/23/22 06:04 Dose: 2 mg Documented by: Olanzapine (Olanzapine Zydis 5 Mg Orally Dis. Tab) 5 mg PO Q6H PRN PRN Reason: Agitation Stop: 02/18/22 12:36 Last Admin: 01/23/22 19:49 Dose: 5 mg Documented by: Ondansetron HCl (Ondansetron Inj 2 Mg/Ml 2 Ml Vial) 4 mg IV Q4H PRN PRN Reason: Nausea &/or Vomiting Stop: 02/16/22 15:02 Last Admin: 01/19/22 16:06 Dose: 4 mg Documented by: Ondansetron HCl (Ondansetron 4 Mg Od Tab) 4 mg SL Q4H PRN PRN Reason: Nausea &/or Vomiting Stop: 02/16/22 15:02
[2022-01-24] MEDS ORDERED: LORazepam 2 MG/1 ML VIAL IV SCH (14:30)
[2022-01-24] MEDS: LORazepam 1 MG in SYRINGE 0.5 ML IV SCH ×2 (18:11→22:18)
[2022-01-24] MEDS: MoRPHine SULF/NSS 250 MG/250 ML BTL IV SCH (23:29)
[2022-01-25] MEDS: LORazepam 1 MG in SYRINGE 0.5 ML IV SCH ×5 (02:38→23:48)
--- NOTE | 2022-01-25 08:42 | Hospitalist Progress Note ---
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 Ferguson. No surgical intervention recommended. Palliative care consultation recommended.) CS, Cefepime Held initially as needed narcotics/neuropsychotropic meds for sedation confusion Palliative care consulted Re: Discuss goals of care with patient/- patient was made comfort care after discussion with palliative medicine continue IV morphine, Ativan, Zyprexa for delirium prn Appreciate palliative medicine input Patient has some episodes of apnea, per family Strong family support, present at the bedside Chronic conditions hx coronary disease status post stenting, PVD status post surgery, hypertension, BP normal hx HCV as per records chronic anemia, hemoglobin at baseline past tobacco abuse. DVT prophylaxis SCDs Re: Brain mets CODE STATUS : DNR/DNI -comfort care Patient's , Ms. Aileen Shetty - [phone]. Admission and Anticipated Discharge Date Admission Date: January 17, 2022 Subjective Patient seen in follow-up of encephalopathy, history of squamous cell carcinoma, with metastases, now comfort care Patient is lethargic, only occasionally responding to voice or touch (per family at the bedside) Family reports episodes of apnea Palliative medicine consulted and following, appreciate their input Review of Systems Review of Systems: Unobtainable due to cognitive status Physical Exam Physical Exam: Constitutional:G + Chronically ill appearing; no acu te distress ENMT: Alopecia, healed s urgical scars over scalp, oral mucou s membranes not dr y Respiratory: normal respiratory effort; no labore d breathing Cardiovascular:G Rate/Rhythm: regul ar rate and regula r rhythm Gastrointestinal ( Abdomen): soft, nontender Skin: pale Neurologic: + Laying in bed, more lethargic not responding to voi ce or touch Results & Data Results & Data ([facility]) Vital Signs (Past 12 Hours) Vital Signs Pulse Pulse Ox 01/25/22 02:41 136 H 89 L Medications Administered Current Inpatient Medications Glycopyrrolate (Glycopyrrolate 0.2 Mg/Ml Vial) 0.2 mg IV Q4H PRN PRN Reason: secretions Stop: 02/21/22 23:57 Last Admin: 01/23/22 23:56 Dose: 0.2 mg Documented by: Heparin Sodium (Porcine) (Heparin 100 Unit/Ml 5ml Flush) 5 ml FLUSH PRN PRN PRN Reason: Flush Stop: 02/16/22 19:49 Last Admin: 01/18/22 12:26 Dose: 5 ml Documented by: Promethazine HCl 6.25 mg/ (Sodium Chloride) 50.25 mls @ 201 mls/hr IV Q6H PRN PRN Reason: Nausea And Vomiting Stop: 02/16/22 01:57 Last Infusion: 01/17/22 13:35 Dose: Infused Documented by: Morphine Sulfate (Morphine Sulf/Nss) 250 mg in 250 mls @ 4.5 mls/hr IV .[id number] [facility]; Protocol Stop: 02/01/22 14:44 Last Admin: 01/24/22 23:29 Dose: 4.5 mg/hr, 4.5 mls/hr Documented by: Lorazepam 1 mg/ Syringe 1 mls @ 2 mls/min IV Q4H [facility] Stop: 02/23/22 18:29 Last Admin: 01/25/22 06:21 Dose: 2 mls/min Documented by: Morphine Sulfate (Morphine Sulfate 2 Mg/Ml Carp) 2 mg IV Q1H PRN PRN Reason: Pain or Respiratory Distress Stop: 01/31/22 15:02 Last Admin: 01/23/22 06:04 Dose: 2 mg Documented by: Olanzapine (Olanzapine Zydis 5 Mg Orally Dis. Tab) 5 mg PO Q6H PRN PRN Reason: Agitation Stop: 02/18/22 12:36 Last Admin: 01/23/22 19:49 Dose: 5 mg Documented by: Ondansetron HCl (Ondansetron Inj 2 Mg/Ml 2 Ml Vial) 4 mg IV Q4H PRN PRN Reason: Nausea &/or Vomiting Stop: 02/16/22 15:02 Last Admin: 01/19/22 16:06 Dose: 4 mg Documented by: Ondansetron HCl (Ondansetron 4 Mg Od Tab) 4 mg SL Q4H PRN PRN Reason: Nausea &/or Vomiting Stop: 02/16/22 15:02
--- NOTE | 2022-01-25 08:42 | Hospitalist Progress Note ---
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 Ferguson. No surgical intervention recommended. Palliative care consultation recommended.) CS, Cefepime Held initially as needed narcotics/neuropsychotropic meds for sedation confusion Palliative care consulted Re: Discuss goals of care with patient/- patient was made comfort care after discussion with palliative medicine continue IV morphine, Ativan, Zyprexa for delirium prn Appreciate palliative medicine input Patient has some episodes of apnea, per family Strong family support, present at the bedside Chronic conditions hx coronary disease status post stenting, PVD status post surgery, hypertension, BP normal hx HCV as per records chronic anemia, hemoglobin at baseline past tobacco abuse. DVT prophylaxis SCDs Re: Brain mets CODE STATUS : DNR/DNI -comfort care Patient's , Ms. Aileen Shetty - [phone]. Admission and Anticipated Discharge Date Admission Date: January 17, 2022 Subjective Patient seen in follow-up of encephalopathy, history of squamous cell carcinoma, with metastases, now comfort care Patient is lethargic, only occasionally responding to voice or touch (per family at the bedside) Family reports episodes of apnea Palliative medicine consulted and following, appreciate their input Review of Systems Review of Systems: Unobtainable due to cognitive status Physical Exam Physical Exam: Constitutional:G + Chronically ill appearing; no acu te distress ENMT: Alopecia, healed s urgical scars over scalp, oral mucou s membranes not dr y Respiratory: normal respiratory effort; no labore d breathing Cardiovascular:G Rate/Rhythm: regul ar rate and regula r rhythm Gastrointestinal ( Abdomen): soft, nontender Skin: pale Neurologic: + Laying in bed, more lethargic not responding to voi ce or touch Results & Data Results & Data ([facility]) Vital Signs (Past 12 Hours) Vital Signs Pulse Pulse Ox 01/25/22 02:41 136 H 89 L Medications Administered Current Inpatient Medications Glycopyrrolate (Glycopyrrolate 0.2 Mg/Ml Vial) 0.2 mg IV Q4H PRN PRN Reason: secretions Stop: 02/21/22 23:57 Last Admin: 01/23/22 23:56 Dose: 0.2 mg Documented by: Heparin Sodium (Porcine) (Heparin 100 Unit/Ml 5ml Flush) 5 ml FLUSH PRN PRN PRN Reason: Flush Stop: 02/16/22 19:49 Last Admin: 01/18/22 12:26 Dose: 5 ml Documented by: Promethazine HCl 6.25 mg/ (Sodium Chloride) 50.25 mls @ 201 mls/hr IV Q6H PRN PRN Reason: Nausea And Vomiting Stop: 02/16/22 01:57 Last Infusion: 01/17/22 13:35 Dose: Infused Documented by: Morphine Sulfate (Morphine Sulf/Nss) 250 mg in 250 mls @ 4.5 mls/hr IV .[id number] [facility]; Protocol Stop: 02/01/22 14:44 Last Admin: 01/24/22 23:29 Dose: 4.5 mg/hr, 4.5 mls/hr Documented by: Lorazepam 1 mg/ Syringe 1 mls @ 2 mls/min IV Q4H [facility] Stop: 02/23/22 18:29 Last Admin: 01/25/22 06:21 Dose: 2 mls/min Documented by: Morphine Sulfate (Morphine Sulfate 2 Mg/Ml Carp) 2 mg IV Q1H PRN PRN Reason: Pain or Respiratory Distress Stop: 01/31/22 15:02 Last Admin: 01/23/22 06:04 Dose: 2 mg Documented by: Olanzapine (Olanzapine Zydis 5 Mg Orally Dis. Tab) 5 mg PO Q6H PRN PRN Reason: Agitation Stop: 02/18/22 12:36 Last Admin: 01/23/22 19:49 Dose: 5 mg Documented by: Ondansetron HCl (Ondansetron Inj 2 Mg/Ml 2 Ml Vial) 4 mg IV Q4H PRN PRN Reason: Nausea &/or Vomiting Stop: 02/16/22 15:02 Last Admin: 01/19/22 16:06 Dose: 4 mg Documented by: Ondansetron HCl (Ondansetron 4 Mg Od Tab) 4 mg SL Q4H PRN PRN Reason: Nausea &/or Vomiting Stop: 02/16/22 15:02
[2022-01-26] MEDS: LORazepam 1 MG in SYRINGE 0.5 ML IV SCH ×4 (05:42→23:58)
--- NOTE | 2022-01-26 13:15 | Palliative Care Progress Note ---
Date of Service January 26, 2022 Assessment & Plan (1) Pain: Plan: Controlled with morphine infusion. No prn dosing last 24 hours. Continue basal rate at 4.5 mg/hr (2) Agitation: Plan: Continue prn zyprexa. His reports that he seems to get restless around the time that ativan is due. (3) At risk for seizures: Plan: No seizures noted. Tolerating reduced frequency of ativan dosing to every six hours. Continue same. (4) Palliative care encounter: Admission and Anticipated Discharge Date Admission Date: January 17, 2022 Subjective No response to voice or touch. His reports that he opened his eyes earlier this morning. No prn medication dosing last 24 hours. Review of Systems Review of Systems: Unobtainable due to reduced consciousness ESAS Pain by observation 0/3 Dyspnea by observation 0/3 PPS 10 Physical Exam Constitutional: + ill appearing; no acute distress ENMT: Mouth: + dry oral mucous membranes Respiratory: apnea, no audible tracheal secretions Cardiovascular: Rate/Rhythm: + tachycardic Musculoskeletal: Extremities: + muscle atrophy L AKA Neurologic: + obtunded PG Care Time/CCT Total # of Minutes Spent Total Time Spent with Patient: Total time spent is greater than 50% in coordination of care (as documented) at patient's floor/unit and/or counseling patient: Coding Level of Care Code 51153 Subseq Hosp Care Lvl 2 Diagnoses Pain R52 Agitation R45.1 At risk for seizures Z91.89 Palliative care encounter Z51.5
--- NOTE | 2022-01-26 18:28 | Hospitalist Progress Note ---
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 Ferguson. No surgical intervention recommended. Palliative care consultation recommended.) CS, Cefepime Held initially as needed narcotics/neuropsychotropic meds for sedation confusion Palliative care consulted Re: Discuss goals of care with patient/- patient was made comfort care after discussion with palliative medicine continue IV morphine drip, Ativan, Zyprexa for delirium prn palliative actively following Chronic conditions hx coronary disease status post stenting, PVD status post surgery, hypertension, BP normal hx HCV as per records chronic anemia, hemoglobin at baseline past tobacco abuse. DVT prophylaxis; C/I- Comfort measure status CODE STATUS : DNR/DNI -comfort care Patient's , Ms. Aileen Shetty - [phone] at bedside I spoke to our nurse coordinator to have him evaluated by [facility] hospice as he should qualify given his requirement for morphine drip, ativan prn and him actively dying. Admission and Anticipated Discharge Date Admission Date: January 17, 2022 Subjective Sleeping, lethargic, did not respond to verbal stimuli. Looks comfortable and was not awakened as he is comfort measures status. at bedside. Physical Exam Physical Exam: General: ill appearing, on NC, appears comfortable mouth- dry Chest: apnea CVS: tachycardic Abdomen: Soft, bowel sounds present Neuro: obtunded, Extremities: muscle atrophy, Left AKA
[2022-01-27] MEDS: LORazepam 1 MG in SYRINGE 0.5 ML IV SCH ×3 (06:04→18:03)
[2022-01-27] MEDS: MoRPHine SULF/NSS 250 MG/250 ML BTL IV SCH (07:44)
--- NOTE | 2022-01-27 15:44 | Palliative Care Progress Note ---
Date of Service January 27, 2022 Assessment & Plan (1) Pain: Plan: Controlled with current morphine infusion basal rate of 4.5mg/hr. No prn use. (2) Agitation: Plan: Zyprexa available as needed. He has not had agitation for the last few days. (3) At risk for seizures: Plan: Continue routine lorazepam dosing. (4) Palliative care encounter: Plan: Talked with his and sister at bedside. They are greatful that he is comfortable. They have been very supportive of each other, doing life review, talking about the future. Anticipate within the next day or two. Admission and Anticipated Discharge Date Admission Date: January 17, 2022 Subjective Tolerating routine care and repositioning per RN. No prn medication use last 24 hours. Review of Systems Review of Systems: Unobtainable due to reduced consciousness ESAS Pain by observation 0/3 Dyspnea by observation 0/3 Physical Exam Constitutional: no acute distress ENMT: Mouth: + dry oral mucous membranes Respiratory: no labored breathing no audible tracheal secretions Cardiovascular: Rate/Rhythm: + tachycardic Musculoskeletal: right aka Neurologic: + obtunded PG Care Time/CCT Total # of Minutes Spent Total Time Spent with Patient: Total time spent is greater than 50% in coordination of care (as documented) at patient's floor/unit and/or counseling patient: Coding Level of Care Code 14492 Subseq Hosp Care Lvl 2 Diagnoses Pain R52 Agitation R45.1 At risk for seizures Z91.89 Palliative care encounter Z51.5
--- NOTE | 2022-01-27 18:56 | Hospitalist Progress Note ---
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 Ferguson. No surgical intervention recommended. Palliative care consultation recommended.) CS, Cefepime Held initially as needed narcotics/neuropsychotropic meds for sedation confusion Palliative care consulted Re: Discuss goals of care with patient/- patient was made comfort care after discussion with palliative medicine continue IV morphine drip, Ativan, Zyprexa for delirium prn palliative actively following Chronic conditions hx coronary disease status post stenting, PVD status post surgery, hypertension, BP normal hx HCV as per records chronic anemia, hemoglobin at baseline past tobacco abuse. Dispo- patient is actively dying- per palliative- a day or two. DVT prophylaxis; C/I- Comfort measure status Updated at bedside Admission and Anticipated Discharge Date Admission Date: January 17, 2022 Subjective Remains obtunded. Comfortable. Physical Exam Physical Exam: General: ill appearing, on NC, appears comfortable mouth- dry Chest: no labored breathing CVS: tachycardic Neuro: obtunded, Extremities: R AKA
[2022-01-28] MEDS: LORazepam 1 MG in SYRINGE 0.5 ML IV SCH ×4 (00:02→18:12)
--- NOTE | 2022-01-28 16:23 | Hospitalist Progress Note ---
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 Ferguson. No surgical intervention recommended. Palliative care consultation recommended.) CS, Cefepime Held initially as needed narcotics/neuropsychotropic meds for sedation confusion Palliative care consulted to discuss goals of care and patient was made comfort care after discussion with family - continue IV morphine drip, Ativan, Zyprexa for delirium prn - palliative actively following and managing Dispo- patient is actively dying- per palliative- a day or two. DVT prophylaxis; C/I- Comfort measure status Updated at bedside Admission and Anticipated Discharge Date Admission Date: January 17, 2022 Subjective Remains obtunded. Comfortable. Physical Exam Physical Exam: General: ill appearing, on NC, appears comfortable mouth- dry Chest: no labored breathing CVS: tachycardic Neuro: obtunded, Extremities: R AKA
[2022-01-29] MEDS: LORazepam 1 MG in SYRINGE 0.5 ML IV SCH ×3 (00:28→12:20)
[2022-01-29] MEDS: MoRPHine SULFATE 2 MG/ML CARP IV PRN ×3 (14:06→16:17)
[2022-01-29] MEDS ORDERED: ACETAMINOPHEN 1,000 MG/100 ML VIAL IV STA (14:07)
--- NOTE | 2022-01-29 14:10 | Hospitalist Progress Note ---
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 Ferguson. No surgical intervention recommended. Palliative care consultation recommended.) CS, Cefepime Held initially as needed narcotics/neuropsychotropic meds for sedation confusion Palliative care consulted to discuss goals of care and patient was made comfort care after discussion with family - continue IV morphine drip, Ativan, Zyprexa for delirium prn - palliative actively following and managing Dispo- patient is actively dying- per palliative- a day or two. DVT prophylaxis; C/I- Comfort measure status Updated at bedside Morena Kamara DO [facility] Hospitalist (2) Sepsis: Admission and Anticipated Discharge Date Admission Date: January 17, 2022 Subjective 61 yo M presents for confusion and questionable sepsis 2/2 UTI. He is on comfort measures today and on exam is obtunded, diaphoretic, febrile and tachypneic with a RR of around 30 breaths per minute. Spoke with at bedside regarding goals for comfort and gave APAP 1000mg IV with additional morphine Returned two hours later and still febrile at 39C with persistent tachypnea around 25 breaths per minute, although he appeared more comfortable to famly. Giving additional toradol now and morphine. Discussed with nurse to continue to reassess every two hours until breathing is more calm and around 16 breaths per minute Cont to treat fever as needed. Box fan request to keep room cool as about 8 people are in the room now. Review of Systems Review of Systems: Pt was obtunded ,could not assess Physical Exam Physical Exam: CONSTITUTIONAL: WNWD, vitals as above, ill-appearing, obtunded, diaphoretic, tachypneic EYES: closed, exam deferred for comfort. ENT: mouth breathing, tongue protruding from mouth and audible secretions are present. RESPIRATORY: increased respiratory effort, tachypnea. CARDIOVASCULAR: tachycardic, S1 and 2 heard without murmurs, gallops or rubs, no JVD, no peripheral edema CHEST: inspection of chest was normal GASTROINTESTINAL: soft, nondistended, no guarding MUSCULOSKELETAL: obtunded SKIN: warm and diaphoretic, skin lesions covered with dressing on scalp NEUROLOGIC: obtunded Results & Data Results & Data ([facility]) Medications Administered Current Inpatient Medications Glycopyrrolate (Glycopyrrolate 0.2 Mg/Ml Vial) 0.2 mg IV Q4H PRN PRN Reason: secretions Stop: 02/21/22 23:57 Last Admin: 01/23/22 23:56 Dose: 0.2 mg Documented by: Heparin Sodium (Porcine) (Heparin 100 Unit/Ml 5ml Flush) 5 ml FLUSH PRN PRN PRN Reason: Flush Stop: 02/16/22 19:49 Last Admin: 01/18/22 12:26 Dose: 5 ml Documented by: Promethazine HCl 6.25 mg/ (Sodium Chloride) 50.25 mls @ 201 mls/hr IV Q6H PRN PRN Reason: Nausea And Vomiting Stop: 02/16/22 01:57 Last Infusion: 01/17/22 13:35 Dose: Infused Documented by: Morphine Sulfate (Morphine Sulf/Nss) 250 mg in 250 mls @ 4.5 mls/hr IV .[id number] [facility]; Protocol Stop: 02/01/22 14:44 Last Admin: 01/27/22 07:44 Dose: 4.5 mg/hr, 4.5 mls/hr Documented by: Lorazepam 1 mg/ Syringe 1 mls @ 2 mls/min IV Q6 [facility] Stop: 02/23/22 18:29 Last Admin: 01/29/22 12:20 Dose: 2 mls/min Documented by: Acetaminophen (Ofirmev) 1,000 mg in 100 mls @ 400 mls/hr IV NOW STA Stop: 01/29/22 14:21 Morphine Sulfate (Morphine Sulfate 2 Mg/Ml Carp) 2 mg IV Q1H PRN PRN Reason: Pain or Respiratory Distress Stop: 01/31/22 15:02 Last Admin: 01/29/22 14:06 Dose: 2 mg Documented by: Olanzapine (Olanzapine Zydis 5 Mg Orally Dis. Tab) 5 mg PO Q6H PRN PRN Reason: Agitation Stop: 02/18/22 12:36 Last Admin: 01/23/22 19:49 Dose: 5 mg Documented by: Ondansetron HCl (Ondansetron Inj 2 Mg/Ml 2 Ml Vial) 4 mg IV Q4H PRN PRN Reason: Nausea &/or Vomiting Stop: 02/16/22 15:02 Last Admin: 01/19/22 16:06 Dose: 4 mg Documented by: Ondansetron HCl (Ondansetron 4 Mg Od Tab) 4 mg SL Q4H PRN PRN Reason: Nausea &/or Vomiting Stop: 02/16/22 15:02
[2022-01-29] MEDS: MoRPHine SULF/NSS 250 MG/250 ML BTL IV SCH (15:18)
[2022-01-29] MEDS ORDERED: KETOROLAC TROMETHAMINE 15 MG/ML VIAL IV ONE (17:15)
[2022-01-29] MEDS ORDERED: MoRPHine SULFATE 4 MG/ML 1 ML CARP\\VIAL IV STA (17:15)
--- NOTE | 2022-01-29 19:15 | Death Pronouncement Note ---
Date of Service January 29, 2022 Pronouncement Note Admission Date January 17, 2022 Date and Time of Date of : 01/29/22 Time of : 19:00 Preliminary Cause of (1) Sepsis: (2) Squamous cell carcinoma of skin of scalp: (3) Vasogenic brain edema: Summary Contacted by nurse that patient ceased to breathe. Family was at bedside. On arrival patient is motionless and unresponsive to verbal or physical stimulation (nail cuticle pressure). Pupils are fixed and dilated. No cardiac sounds to auscultation. No breath sounds to auscultation. states she felt patient was looking more comfortable before he passed. Time of was 7pm. Morena Kamara DO [facility] Hospitalist Additional Data Attending physician: Morena Kamara DO
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
== END 2022-01-29 20:10 | disposition expired | DRG 80 ==
LOC: ED 17:37 → 2W 01-17 00:22 → SUATTDRO 01-17 00:22 → 2W 01-17 01:22 → 3E 01-19 19:03
DX: Z79.82 Long term (current) use of aspirin; Z66 Do not resuscitate; Z95.5 Presence of coronary angioplasty implant and graft; A41.9 Sepsis, unspecified organism; C79.31 Secondary malignant neoplasm of brain; C78.00 Secondary malignant neoplasm of unspecified lung; B19.20 Unspecified viral hepatitis C without hepatic coma; I25.2 Old myocardial infarction; Z89.611 Acquired absence of right leg above knee; Z51.5 Encounter for palliative care; I25.10 Atherosclerotic heart disease of native coronary artery without angina pectoris; D84.9 Immunodeficiency, unspecified; C44.90 Unspecified malignant neoplasm of skin, unspecified; C44.42 Squamous cell carcinoma of skin of scalp and neck; R45.1 Restlessness and agitation; N39.0 Urinary tract infection, site not specified; Z87.891 Personal history of nicotine dependence; Z91.89 Other specified personal risk factors, not elsewhere classified; G89.3 Neoplasm related pain (acute) (chronic); I10 Essential (primary) hypertension; D64.9 Anemia, unspecified; Z79.899 Other long term (current) drug therapy; F32.A Depression, unspecified; G93.40 Encephalopathy, unspecified; F41.9 Anxiety disorder, unspecified; G93.6 Cerebral edema